=== PATIENT | male | born 1955 | race African-American/Black ===

== ENCOUNTER 2019-10-25 12:48 | Emergency (ER) | payer OTHER ==
[~2019-10-25] VITALS: Ht 182.9 cm; Wt 75.0 kg
[2019-10-25] MEDS ORDERED: DIPHENHYDRAMINE 50MG CAPSULE PO ONE (16:00)
[2019-10-25] MEDS ORDERED: PREDNISONE 20MG TABLET PO ONE (16:00)
[2019-10-25 16:23] VITALS: BP 145/80
== END 2019-10-25 16:23 | disposition home or self-care (01) ==
LOC: ER 12:48
DX: T45.0X5A Adverse effect of antiallergic and antiemetic drugs, initial encounter (principal); I10 Essential (primary) hypertension; Z88.0 Allergy status to penicillin; Z88.6 Allergy status to analgesic agent; Y92.89 Other specified places as the place of occurrence of the external cause
CPT/HCPCS: 99283; J7512; Q0163

== ENCOUNTER 2020-10-27 09:50 | Emergency (ER) | payer OTHER ==
[~2020-10-27] VITALS: Ht 182.9 cm; Wt 73.0 kg
[2020-10-27 09:53] VITALS: BP 141/109
[2020-10-27] MEDS ORDERED: DEXAMETHASONE 10 MG/ML VIAL IM ONE (10:15)
[2020-10-27] MEDS ORDERED: DIPHENHYDRAMINE 50MG/ML VIAL IM ONE (10:15)
[2020-10-27] MEDS ORDERED: FAMOTIDINE 20MG TABLET PO ONE (10:15)
== END 2020-10-27 12:38 | disposition home or self-care (01) ==
LOC: ER 09:50
DX: L23.4 Allergic contact dermatitis due to dyes (principal); T49.4X5A Adverse effect of keratolytics, keratoplastics, and other hair treatment drugs and preparations, initial encounter; X58.XXXA Exposure to other specified factors, initial encounter; Y92.89 Other specified places as the place of occurrence of the external cause; I10 Essential (primary) hypertension
CPT/HCPCS: 96372; 99284; J1200